=== PATIENT | male | born 1985 | race Caucasian/White ===

== ENCOUNTER → 2020-08-07 15:39 | Outpatient (CLI) | payer OTHER, SELFPAY ==
--- NOTE | ~2020-08-07 | XR_ITS ---
XR elbow RT min 3V DATE: 08/07/2020 15:51 INDICATION: Right elbow tendinitis TECHNIQUE: 4 views COMPARISON: None FINDINGS: No fracture or dislocation or joint effusion. No periosteal reaction or bone destruction. J oint spaces are preserved. IMPRESSION: Negative Reviewed, dictated and finalized at location B. IMPRESSION: Negative
== END ==
PROVIDERS: PCP Nurse Practitioner Adult Health; Visit Provider Nurse Practitioner Adult Health
DX: M77.8 Other enthesopathies, not elsewhere classified (principal)
CPT/HCPCS: 73080

== ENCOUNTER → 2021-05-19 14:54 | Outpatient (REF) | payer OTHER, SELFPAY | LOC: ANHLAB 14:54 | PROVIDERS: PCP Nurse Practitioner Adult Health; Visit Provider Nurse Practitioner | DX: L72.0 Epidermal cyst (principal) | CPT/HCPCS: 88304 ==

== ENCOUNTER 2024-03-03 11:16 | Emergency (ER) | payer OTHER, SELFPAY ==
--- NOTE | 2024-03-03 11:17 | ED_ITS ---
HPI - URI/Sore Throat General Chief Complaint: Upper Respiratory Infection Stated Complaint: head pressure,chest congestion Time Seen by Provider: 03/03/24 11:17 Source: patient Mode of arrival: ambulatory Limitations: no limitations History of Present Illness HPI Narrative: Miky is a 38-year-old male patient presenting to the clinic today with complaints of head pressure, sinus pressure, sinus congestion for the past 10 days. Thinks he may have a sinus infection. He reports he gets the symptoms every year and gets z-pack and feels better after a week. Denies any fevers, chills, body aches, chest pain, or shortness of breath. MD elicited complaint: sore throat and nasal congestion Related Data Home Medications ?Medication ?Instructions ?Recorded ?Confirmed ?Last Taken ?Type albuterol sulfate 90 mcg/actuation 2 puff inhalation Q4-6H PRN 03/03/24 03/03/24 Unknown History aerosol inhaler shortness of breath or wheezing aripiprazole 2 mg tablet 2 mg PO DAILY 03/03/24 03/03/24 Unknown History dextroamphetamine-amphetamine ER 20 mg PO DAILY 03/03/24 03/03/24 Unknown History 20 mg 24hr capsule,extend release fluoxetine 20 mg capsule 20 mg PO QPM 03/03/24 03/03/24 Unknown History Allergies Allergy/AdvReac Type Severity Reaction Status Date / Time Penicillins Allergy Mild Hives Verified 03/03/24 11:33 Review of Systems Review of Systems: Pertinent positives per HPI. Patient denies any fever, chills, rash, visual changes, dizziness, sore throat, shortness of breath, chest pain, palpitations, nausea, vomiting, diarrhea, constipation, abdominal pain, or any urinary issues. PMFSH Social History Social History Alcohol intake: current Substance use: current Comments At the time of my signature, I reviewed and agree with the nursing past medical, surgical, social, and family history. There is no relevant family history pertinent to the patient complaint. Exam Narrative: General: Well-developed, well nourished, in no apparent distress Head: Normocephalic, atraumatic Eyes: Pupils equally round and reactive to light bilaterally, EOM intact, sclera and conjunctive clear, no discharge, lids normal Ears: TMs intact and congested, ear canals clear, no drainage, grossly hearing normal. Nose: Nares patent, yellow nasal discharge, no inflammation, no sinus tenderness. Mouth: Oropharynx red without lesions or masses, good dentition, MMM. Postnasal drip Neck: Supple, trachea midline, no enlargement of anterior or posterior cervical nodes, no thyroid masses or goiter palpable. Cardio: Regular rate and rhythm, s1 and s2 normal, no murmur appreciated. Resp: Clear to auscultation bilaterally anteriorly and posteriorly, no rhonchi, rales, wheezing or rubs Course Course Emergency Course: Portions of this record may have been created with voice recognition software. Level of Care: Express Care Visit Vital Signs Vital signs: Vital signs reviewed MDM - URI/Sore Throat MDM Narrative Medical decision making narrative: At the time of visit patient is resting comfortably on the exam table. Patient appears to be nontoxic. Plan: I suspect patient has acute bacterial rhinosinusitis. Prescription for azithromycin and prednisone was sent to the pharmacy pair patient's request on the azithromycin. Supportive measures were discussed with the patient and they voiced understanding discharge instructions and agrees to treatment plan. Return precautions reviewed Differential Diagnosis Differential diagnosis: Likely upper respiratory infection, otitis media, sinusitis, viral infection, bronchitis, influenza, pharyngitis and other (COVID) Discharge Plan Discharge Clinical Impression: Sinusitis Qualifiers: Sinusitis location: frontal Chronicity: acute Recurrence: non-recurrent Qualified Code(s): J01.10 - Acute frontal sinusitis, unspecified Patient Disposition: Home, Self-Care Condition: Stable Instructions: Antibiotic Form, Rhinosinusitis (ED) Additional Instructions: Take prescription medications only as prescribed-azithromycin and prednisone Increase fluids and stay well hydrated Tylenol/motrin for pain/fever Flonase and OTC antihistamines as directed Vicks vapor rub to open sinuses Sinus rinses for congestion Cepacol spray, cough drops, throat lozenges, warm tea with honey/lemon, gargle salt water to soothe throat BRAT diet for diarrhea Clear liquids x 24 hours then advance as tolerated for nausea/vomiting Go to the ED if you develop a worsening in your condition- high fever not controlled by Tylenol or Motrin, dehydration, weakness, lethargy, shortness of breath, or chest pain. Follow up with your PCP in 3-5 days if symptoms persist. Patient Language: Citizen Of [place] Prescriptions: New azithromycin 250 mg tablet See Rx Instructions .ROUTE .COMPLEX Qty: 6 0RF Rx Instructions: For 250 mg dose pack: take 500 mg today (day 1), then 250 mg for 4 days (days 2-5) prednisone 20 mg tablet 40 mg PO DAILY 5 Days Qty: 10 0RF No Action No Home Medications Follow-up/Referrals: UNKNOWN,DOCTOR [Primary Care Provider] - Time of Disposition: 11:38 Quality NIHSS Nursing Documentation ED NIHSS nursing documentation: reviewed/agree
[2024-03-03 11:29] VITALS: BP 136/81; PULSE 83; RESP 16; TEMP 36.7; O2SAT 99
== END 2024-03-03 11:45 | disposition home or self-care (01) ==
PROVIDERS: Emergency Provider Nurse Practitioner Family
DX: J01.10 Acute frontal sinusitis, unspecified (principal); J45.909 Unspecified asthma, uncomplicated; F90.9 Attention-deficit hyperactivity disorder, unspecified type; F32.A Depression, unspecified
CPT/HCPCS: 99213; G0463